=== PATIENT | female | born 2005 | race Two or more races ===

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

== ENCOUNTER 2025-06-23 11:53 | Emergency (ER) | payer MEDICAID, SELFPAY ==
[2025-06-23 12:02] VITALS: BP 178/109; PULSE 78; RESP 18; TEMP 37.2; O2SAT 98; BMI 25.1
--- NOTE | 2025-06-23 12:03 | XR_ITS ---
Examination: Shoulder, left, 3 views Technique: Shoulder AP internal rotation, AP external rotation, Y view shoulder, 3 views Exam date and time : June 23, 2025, 12:17 p.m. INDICATIONS: Left shoulder injury today with pain FINDINGS: No shoulder fracture or dislocation. No AC joint separation IMPRESSION: No shoulder fracture or dislocation
--- NOTE | 2025-06-23 12:43 | EDNOTE_ITS ---
<Statement entered by Ibeth Gallardo MD - 06/23/25 16:24> As co-signing physician, I was present and available for consult prn. I concur with the plan and care as documented by the midlevel provider. Upper Extremity Injury RME/HPI General Chief Complaint: Extremity Injury, Upper Stated Complaint: dislocated left shoulder very painful Time Seen by Provider: 06/23/25 12:03 Arrival date/time: 06/23/25 11:53 20-year-old female presents to the Emergency Department with complaints of left shoulder pain patient reports that she was stretching and developed pain in her left upper arm/shoulder region today patient reports pain has improved since initial injury but is concerned that she may have dislocated her shoulder Limitations: no limitations Related Data Previous Rx's ?Medication ?Instructions ?Recorded dicyclomine 20 mg tablet 20 mg PO QID PRN abdominal p ain 03/08/24 #30 tabs ibuprofen 600 mg tablet 600 mg PO Q6H PRN pain #30 t abs 03/08/24 ondansetron 4 mg disintegrating 4 mg PO Q6H PRN nausea and 03/08/24 tablet vomiting #10 tabs cyclobenzaprine 10 mg tablet 10 mg PO TID PRN muscle s pasm 10 06/23/25 days #30 tab-caps ibuprofen 600 mg tablet 600 mg PO Q6H #30 tabs 06/23 Allergies Allergy/AdvReac Type Severity Reaction Status Date / Time Penicillins Allergy Severe Hives Verified 06/23/25 11:56 Review of Systems Review of Systems Systems Reviewed: All systems reviewed, normal except as documented Constitutional Constitutional: Reports system reviewed and no additional complaints, except as documented, Denies fever(s) and Denies headache(s) Eyes Eyes: Reports system reviewed and no additional complaints, except as documented and Denies blurry vision ENT Ears, Nose, Mouth, and Throat: Reports system reviewed and no additional complaints, except as documented, Denies headache(s), Denies nasal congestion and Denies nasal discharge Cardiovascular Cardiovascular: Reports system reviewed and no additional complaints, except as documented, Denies chest pain and Denies dyspnea Respiratory Respiratory: Reports system reviewed and no additional complaints, except as documented, Denies chest congestion, Denies cough and Denies dyspnea Gastrointestinal Gastrointestinal: Reports system reviewed and no additional complaints, except as documented and Denies abdominal pain Musculoskeletal Musculoskeletal: Reports system reviewed and no additional complaints, except as documented, Reports arthralgias, Denies deformity, Denies numbness, Reports stiffness and Denies tingling Integumentary/Breasts Skin/Breast: Reports system reviewed and no additional complaints, except as documented and Denies rash Neurologic Neurologic: Reports system reviewed and no additional complaints, except as documented, Reports as per HPI, Denies headache(s), Denies numbness and Denies tingling Past Medical History Past Medical History CARDIAC: Negative Cardiac Disorders or Congestive Heart Failure RESPIRATORY: Negative Chronic Obstructive Pulmonary Disease (COPD) or Asthma GENITOURINARY: Negative Renal Disease ENDOCRINE: Negative Diabetes Mellitus Type 1 or Diabetes Mellitus Type 2 HEMATOLOGIC: Negative Sickle Cell Disease Social History SMOKING STATUS: Never smoker SUBSTANCE USE: does not use ED Exam General Limitations: Present no limitations General appearance: Present alert and in no apparent distress Head Head exam: Present atraumatic Eye Eye exam: Present normal appearance, PERRL and EOMI ENT ENT exam: Present normal exam, normal oropharynx and mucous membranes moist Neck Neck exam: Present normal inspection, full ROM and trachea midline Chest Chest inspection: Present normal inspection and symmetric chest wall rise Respiratory Respiratory exam: Present normal lung sounds bilaterally Cardiovascular Cardiovascular exam: Present regular rate, normal rhythm and normal heart sounds Abdominal Exam Abdominal exam: Present soft and normal bowel sounds Extremities Exam Extremities exam: Present normal inspection and full ROM Back Exam Back exam: Present normal inspection and full ROM Neurological Exam Neurological exam: Present alert, oriented X3, CN II-XII intact, normal gait and reflexes normal; Absent motor sensory deficit Psychiatric Psychiatric exam: Present normal affect and normal mood Skin Skin exam: Present warm, dry, intact and normal color Course Quality Measures none Orders Category Date Time Status XR shoulder LT min 2V Stat Exams 06/23/25 12:03 Completed Vital Signs Vital signs: Vital Signs Temperature 98.9 F 06/23/25 12:02 Pulse Rate 78 06/23/25 12:02 Respiratory Rate 18 06/23/25 12:02 Blood Pressure 178/109 H 06/23/25 12:02 Pulse Oximetry (%) 98 06/23/25 12:02 Oxygen Delivery Method Room Air 06/23/25 12:02 O2 saturation 98% room air with normal limits Extremity Injury MDM Narrative MDM Narrative:: 20-year-old female presents to the Emergency Department with complaints of left shoulder pain patient reports that she was stretching and developed pain in her left upper arm/shoulder region today patient reports pain has improved since initial injury but is concerned that she may have dislocated her shoulder On exam patient well-appearing patient does not appear ill or toxic Clinically patient does not have a shoulder dislocation. X-ray left shoulder obtained no acute fracture dislocation noted no AC separation Patient given ibuprofen prescription Patient discharged Patient data External records reviewed:: [facility] previous records Clinical information provided by:: patient Social determinants that could affect healthcare access:: none Patient has the following chronic illnesses:: None How is presenting disease/condition affected by chronic disease/condition?: no chronic disease Evaluation data The following diagnostics were reviewed and interpreted by me:: radiology exam(s) Lab and/or radiology exams considered but not ordered:: Radiology obtained Interpretation Summary: Reviewed by me Medications / Prescriptions Medications or Prescriptions considered but not ordered:: Given Medication administrations:: Given Consultations Consultation(s) initiated? (list below): No Diagnosis Upper Extremity Injury Differential Diagnosis: other (Shoulder fracture, shoulder sprain) Most likely diagnosis given after review of the tests above:: Shoulder sprain Admission Indicated Admission indicated?: not indicated Admission Request Was there a request for admission?: No Disposition Plan Disposition Plan: Discharge Discharge Attestation Discharge Attestation: The patient and all family members were given an opportunity to ask questions and understood the discharge instructions. Discharge instructions specifically effects, indications for sooner follow up or return to the emergency department, and the expected course of current diagnosis. Patient condition: Stable Discharge Plan Plan Patient Disposition: HOME (Self Care) Discharge Disposition comment: Stable Prescriptions/Referrals Prescriptions/Med Rec: New cyclobenzaprine 10 mg tablet 10 mg PO TID PRN (Reason: muscle spasm) 10 Days Qty: 30 0RF ibuprofen 600 mg tablet 600 mg PO Q6H Qty: 30 0RF No Action ondansetron 4 mg tablet,disintegrating 4 mg PO Q6H PRN (Reason: nausea and vomiting) Qty: 10 0RF dicyclomine 20 mg tablet 20 mg PO QID PRN (Reason: abdominal pain) Qty: 30 0RF ibuprofen 600 mg tablet 600 mg PO Q6H PRN (Reason: pain) Qty: 30 0RF Referrals: Naty Rico PA-C [Primary Care Provider] - In 1 week Problem List Clinical Impression: Sprain of left shoulder Patient/Caregiver Discharge Instructions Education Materials: ED Shoulder Sprain Additional Instructions: Please follow up with your primary care doctor in the next 24-48hrs for any worsening symptoms return here immediately Print Language: Burmese Stand Alone Forms: [employer] Info., Patient Portal Info Letter PA/PRODUCT SAFETY COORDINATOR Supervising Physician PA/PRODUCT SAFETY COORDINATOR Supervising Physician: Dr. Gallardo
== END 2025-06-23 13:15 | disposition home or self-care (01) ==
PROVIDERS: Emergency Provider Nurse Practitioner Primary Care; PCP Physician Assistant
DX: S43.402A Unspecified sprain of left shoulder joint, initial encounter (principal); X58.XXXA Exposure to other specified factors, initial encounter
CPT/HCPCS: 73030; 99282